=== PATIENT | female | born 1970 | race Caucasian/White ===

== ENCOUNTER 2017-05-29 00:19 | Emergency (ER) | payer SELFPAY ==
[~2017-05-29] VITALS: Ht 162.6 cm; Wt 69.0 kg
[~2017-05-29 00:19] MED LIST: ACET325T33 PO; BENZ100C70 PO; IBUP-1542 PO; PROM6.25 PO
[2017-05-29 00:23] VITALS: Ht 162.6 cm; Wt 69.0 kg
--- NOTE | 2017-05-29 02:19 | ERD ---
ER Documentation Chief Complaint Chief Complaint epigastric pain, diziness, nausea, diarrhea today HPI The patient is a 46-year-old female, presenting to the ER because of nausea, vomiting, diarrhea, epigastric abdominal discomfort that began about 10:30 PM. She denies hematemesis, hematochezia, fever, chills, neck pain, chest pain, dysuria, recent traveling Medical history: None Past surgical history: Appendectomy, cholecystectomy ROS All systems reviewed and are negative except as per history of present illness. Medications Home Meds Active Scripts Ondansetron (Ondansetron Odt) 4 Mg Tab.rapdis, 4 MG PO Q6H Y for NAUSEA AND/OR VOMITING, #10 TAB Prov:MASHA HOYT MD 05/29/17 Ibuprofen* (Motrin*) 600 Mg Tab, 600 MG PO Q6, #30 TAB Prov:YAZMIN TRINH PA-C 08/08/15 Acetaminophen* (Tylenol*) 325 Mg Tablet, 2 TAB PO Q6 Y for PAIN AND OR ELEVATED TEMP, #20 TAB Prov:YAZMIN TRINH PA-C 08/08/15 Benzonatate* (Tessalon Perle*) 100 Mg Capsule, 100 MG PO Q8H Y for COUGH, #100 CAP Prov:YAZMIN TRINH PA-C 08/08/15 Promethazine w/Codeine* (Phenergan w/Codeine* Syrup) 5 Ml Syrup, 5 ML PO QHS Y for COUGH, #100 ML Prov:YAZMIN TRINH PA-C 08/08/15 Allergies Allergies: Coded Allergies: Sulfa (Sulfonamide Antibiotics) (Unverified Allergy, Unknown, 11/01/14) cephalexin (Verified Allergy, Unknown, 10/31/14) PMhx/Soc History of Surgery: No Anesthesia Reaction: No Hx Neurological Disorder: No Hx Respiratory Disorders: No Hx Cardiac Disorders: No Hx Psychiatric Problems: No Hx Miscellaneous Medical Probl: No Hx Alcohol Use: No Hx Substance Use: No Hx Tobacco Use: No Physical Exam Vitals Vital Signs Date Time Temp Pulse Resp B/P Pulse Ox O2 Delivery O2 Flow Rate FiO2 05/29/17 06:18 75 18 110/73 98 Room Air 05/29/17 05:36 80 18 111/70 98 Room Air 05/29/17 00:23 98.2 99 20 126/73 98 Physical Exam Const: No acute distress. Head: Atraumatic. Eyes: Normal Conjunctiva. ENT: Normal External Ears, Nose and Mouth. Neck: Full range of motion. No meningismus. Resp: Clear to auscultation bilaterally. Cardio: Regular rate and rhythm. Abd: Soft, non distended, normal bowel sounds, vague and diffuse abdominal discomfort, no rigidity, rebound, CVA tenderness Skin: No petechiae or rashes. Back: No midline or flank tenderness. Ext: No cyanosis, or edema. Neur: Awake and alert. No focal deficit Psych: Normal Mood and Affect. Result Diagram: 05/29/17 0310 05/29/17 0310 Results 24 hrs Laboratory Tests Test 05/29/17 03:10 05/29/17 04:34 White Blood Count 17.810^3/ul Red Blood Count 4.6910^6/ul Hemoglobin 15.1g/dl Hematocrit 43.1% Mean Corpuscular Volume 91.9fl Mean Corpuscular Hemoglobin 32.2pg Mean Corpuscular Hemoglobin Concent 35.0g/dl Red Cell Distribution Width 12.9% Platelet Count 03821^3/UL Mean Platelet Volume 12.7fl Neutrophils % 94.2% Lymphocytes % 2.4% Monocytes % 2.6% Eosinophils % 0.1% Basophils % 0.3% Nucleated Red Blood Cells % 0.0/100WBC Neutrophils # 16.810^3/ul Lymphocytes # 0.410^3/ul Monocytes # 0.510^3/ul Eosinophils # 0.010^3/ul Basophils # 0.110^3/ul Nucleated Red Blood Cells # 0.010^3/ul Sodium Level 144mmol/L Potassium Level 4.9mmol/L Chloride Level 108mmol/L Carbon Dioxide Level 21mmol/L Anion Gap 20 Blood Urea Nitrogen 19mg/dl Creatinine 0.67mg/dl Glucose Level 137mg/dl Calcium Level 9.5mg/dl Total Bilirubin 2.0mg/dl Direct Bilirubin 0.00mg/dl Indirect Bilirubin 2.0mg/dl Aspartate Amino Transf (AST/SGOT) 57IU/L Alanine Aminotransferase (ALT/SGPT) 39IU/L Alkaline Phosphatase 90IU/L Total Protein 9.2g/dl Albumin 4.8g/dl Globulin 4.40g/dl Albumin/Globulin Ratio 1.09 Lipase 47U/L Bedside Urine pH (LAB) 5.5 Bedside Urine Protein (LAB) 1+ Bedside Urine Glucose (UA) Negative Bedside Urine Ketones (LAB) Negative Bedside Urine Blood 1+ Bedside Urine Nitrite (LAB) Negative Bedside Urine Leukocyte Esterase (L Negative Current Medications Medications (Trade) Dose Ordered Sig/Kimmie Route PRN Reason Start Time Stop Time Status Last Admin Dose Admin Sodium Chloride (NS) 1,000 ml @ 1,000 mls/hr Q1H STAT IV 05/29/17 02:25 05/29/17 03:24 DC 05/29/17 03:10 Ondansetron HCl (Zofran Inj) 4 mg ONCE STAT IV 05/29/17 02:25 05/29/17 02:27 DC 05/29/17 05:27 Procedures/[place] [id number] Radiology Main Line: [phone] DIAGNOSTIC IMAGING REPORT Patient: TONE VILCHIS : 1970 Age: 46 Sex: F MR #: [id number] DOS: 05/29/17 0526 Ordering MD: MASHA HOYT MD Location: E/R Room/Bed: PROCEDURE: CT Abdomen and pelvis without contrast. CLINICAL INDICATION: Abdominal pain. TECHNIQUE: CT scan of the abdomen and pelvis was performed on a multi- detector high-resolution CT scanner. Contiguous axial images were obtained from the lung bases to the ischial tuberosities without intravenous contrast. Coronal and sagittal reformatted images were also obtained. Images were reviewed on the PACS workstation. DICOM images are available. One or more of the following dose reduction techniques were used: - Automated exposure control. - Adjustment of the mA and/or kV according to patient size. - Use of iterative reconstruction technique. Exam CTD/vol = 10.39 mGy. Total exam DLP = 570.58 mGy-cm. COMPARISON: 11/01/2014. FINDINGS: Evaluation of the lung bases demonstrates minimal bibasilar atelectasis. Abdomen: The liver is normal in size. There is no focal mass or dilatation of the biliary tree. The patient is status post cholecystectomy. The spleen, pancreas and bilateral adrenal glands are within normal limits. Bilateral kidneys are normal in size with no contour deforming mass identified. There is no radiopaque renal or ureteral calculus identified. There is no hydronephrosis or hydroureter. There is no retroperitoneal adenopathy. The abdominal aorta is of normal caliber. There are mildly distended loops of small bowel. There is no bowel obstruction or free air. The appendix is not visualized. There is no diverticulosis or diverticulitis. There is no ascites. Pelvis: The bladder is unremarkable. The uterus and adnexa are within normal limits. An intrauterine device is present. There is no significant pelvic adenopathy or free fluid. Evaluation of the osseous structures demonstrates no suspicious lytic or blastic lesion. IMPRESSION: Mildly distended loops of small bowel suggestive of an ileus. There is no bowel obstruction. Status post cholecystectomy. Intrauterine device. .Luis E Dowell MD, MD Date Time Electronically viewed and signed by .Luis E Dowell MD, on 05/29/2017 05:54 .T/ CC: MASHA HOYT MD MEDICAL MAKING DECISION: The patient is a 46-year-old female, presenting to the ER because of acute ileus. She was treated with 1 L normal saline for clinical dehydration and Zofran 4 mg IV for now sent with good response. The differential diagnoses considered include but are not limited to cystitis, pancreatitis, hepatitis, gastritis, peptic ulcer disease, gastric ulcer, appendicitis, diverticulitis, cholangitis, choledocholithiasis, partial small bowel obstruction. Departure Diagnosis: Primary Impression: Ileus Additional Impression: Abnormal LFTs Condition: Good Comments She was discharged with Zofran and advised to return in 8 hour for reevaluation , sooner if any concern MASHA HOYT MD May 29, 2017 02:19
[2017-05-29] MEDS: ONDANSETRON 4 MG INJ IV STA ×2 (02:25→05:27)
[2017-05-29] MEDS ORDERED: SOD CHLORIDE 0.9% 1,000 ML IV STA (02:25)
[2017-05-29 04:01] LABS: ALBUMIN 4.8 g/dl (3.3-4.9); ALBUMIN/GLOBULIN RATIO 1.09; CALCIUM 9.5 mg/dl (8.4-10.2); CREATININE 0.67 mg/dl (0.44-1.00); POTASSIUM 4.9 mmol/L (3.5-5.1); TOTAL PROTEIN 9.2 g/dl (6.1-8.1)
[2017-05-29 04:09] LABS: ABNORMAL IP MESSAGE 1; BASOPHIL # 0.1 10^3/ul (0.0-0.1); BASOPHILS % 0.3 % (0.0-2.0); EOSINOPHILS % 0.1 % (0.0-7.0); HEMATOCRIT 43.1 % (37.0-47.0); HEMOGLOBIN 15.1 g/dl (12.0-16.0); LYMPHOCYTES # 0.4 10^3/ul (0.8-2.9); LYMPHOCYTES % 2.4 % (15.0-51.0); MEAN CORPUSCULAR HEMOGLOBIN 32.2 pg (29.0-33.0); MEAN CORPUSCULAR VOLUME 91.9 fl (82.0-101.0); MONOCYTE # 0.5 10^3/ul (0.3-0.9); MONOCYTES % 2.6 % (0.0-11.0); NEUTROPHIL # 16.8 10^3/ul (1.6-7.5); NEUTROPHILS % 94.2 % (39.0-77.0); PLATELET COUNT 228 10^3/UL (140-415); RED BLOOD COUNT 4.69 10^6/ul (4.20-5.40); RED CELL DISTRIBUTION WIDTH 12.9 % (11.5-14.5); WHITE BLOOD COUNT 17.8 10^3/ul (4.8-10.8)
[2017-05-29 04:11] LABS: MEAN PLATELET VOLUME 12.7 fl (7.4-10.4); POSITIVE DIFF @See below
[2017-05-29 04:35] LABS: URINE BLOOD (Dip) POC 1+ (NEGATIVE)
[2017-05-29] MEDS ORDERED: ONDA4TAB14 PO (05:28)
--- NOTE | 2017-05-29 05:54 | RADRPT ---
PROCEDURE: CT Abdomen and pelvis without contrast. CLINICAL INDICATION: Abdominal pain. TECHNIQUE: CT scan of the abdomen and pelvis was performed on a multi-detector high-resolution CT scanner. Contiguous axial images were obtained from the lung bases to the ischial tuberosities wit hout intravenous contrast. Coronal and sagittal reformatted images were also obtained. Images were reviewed on the PACS workstation. DICOM images are available. One or more of the following dose reduction techniques were used: - Automated exposure control. - Adjustment of the mA and/or kV according to patient size. - Use of iterative reconstruction technique. Exam CTD/vol = 10.39 mGy. Total exam DLP = 570.58 mGy-cm. COMPARISON: 11/01/2014. FINDINGS: Evaluation of the lung bases demonstrates minimal bibasilar atelectasis. Abdomen: The liver is normal in size. There is no focal mass or dilatation of the biliary tree. T he patient is status post cholecystectomy. The spleen, pancreas and bilateral adrenal glands are wi thin normal limits. Bilateral kidneys are normal in size with no contour deforming mass identified. There is no radiopaque renal or ureteral calculus identified. There is no hydronephrosis or hydro ureter. There is no retroperitoneal adenopathy. The abdominal aorta is of normal caliber. There are mildly distended loops of small bowel. There is no bowel obstruction or free air. The ap pendix is not visualized. There is no diverticulosis or diverticulitis. There is no ascites. Pelvis: The bladder is unremarkable. The uterus and adnexa are within normal limits. An intrauter ine device is present. There is no significant pelvic adenopathy or free fluid. Evaluation of the osseous structures demonstrates no suspicious lytic or blastic lesion. IMPRESSION: Mildly distended loops of small bowel suggestive of an ileus. There is no bowel obstruction. Status post cholecystectomy. Intrauterine device. .Luis E Dowell MD, MD Date Time Electronically viewed and signed by .Luis E Dowell MD, MD on 05/29/2017 05:54 .T/
[2017-05-29 06:18] VITALS: BP 110/73; PULSE 75; RESP 18
== END 2017-05-29 06:48 | disposition home or self-care (01) ==
LOC: E/R 00:19
DX: K56.7 Ileus, unspecified (principal); R94.5 Abnormal results of liver function studies
CPT/HCPCS: 36415; 74176; 80053; 81003; 83690; 85025; 96374; 99285; J2405; J7030